=== PATIENT | male | born 1995 | race African-American/Black ===

== ENCOUNTER 2019-11-11 14:57 | Emergency (ER) | payer SELFPAY ==
[~2019-11-11] VITALS: Ht 172.7 cm; Wt 68.0 kg
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
[2019-11-11] MEDS ORDERED: NAPROXEN250 MG PO (17:48)
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
[2019-11-11 17:54] VITALS: BP 122/83
== END 2019-11-11 17:54 | disposition home or self-care (01) ==
LOC: ER 14:57
DX: R07.89 Other chest pain (principal); Y35.393A Legal intervention involving other blunt objects, suspect injured, initial encounter; Y92.488 Other paved roadways as the place of occurrence of the external cause; F17.210 Nicotine dependence, cigarettes, uncomplicated
CPT/HCPCS: 71046; 99283

== ENCOUNTER 2020-10-22 11:52 | Emergency (ER) | payer SELFPAY ==
[~2020-10-22] VITALS: Ht 172.7 cm; Wt 68.0 kg
[~2020-10-22 11:52] MED LIST: NAPROXEN250 MG PO
[2020-10-22] MEDS ORDERED: IBUPROFEN 600 MG TAB PO STA (12:10)
[2020-10-22] MEDS ORDERED: IBUPROFEN600 MG PO (13:13)
== END 2020-10-22 13:25 | disposition home or self-care (01) ==
LOC: ER 12:10
DX: S93.401A Sprain of unspecified ligament of right ankle, initial encounter (principal); W10.8XXA Fall (on) (from) other stairs and steps, initial encounter; Y93.01 Activity, walking, marching and hiking; Y92.008 Other place in unspecified non-institutional (private) residence as the place of occurrence of the external cause
CPT/HCPCS: 99283